=== PATIENT | female | born 1945 | race Caucasian/White ===

== ENCOUNTER 2019-08-08 21:41 | Inpatient (IN) | payer MEDICARE ==
[~2019-08-08] VITALS: Ht 162.6 cm; Wt 75.7 kg
[~2019-08-08 21:41] MED LIST: ANASPAZ0.125 MG PO; ASPIR 8181 MG PO; ASPIRIN325 PO; AUGMENTIN 875875 M1; AUGMENTIN 875875 MG PO; CIPRO250 M1 PO; DIABETA; ETODOLAC 400 M400 M1 PO; ETODOLAC PO; FLOMAX0.4 MG PO; GLIPIZIDE 10 MG10 MG PO; GLYBURIDE 5 MG T5 M1 PO; HYDROCODON-ACE1 EAC7 PO; HYDROCODONE-AP1 EAC6 PO; IBUPROFEN 600600 M1 PO; KEFLEX500 M1 PO; LEVEMIR SUBQ; LISINOPRIL10 MG PO; MACROBID 100 M100 M1 PO; MIRALAX255 GM; MOBIC7.5 MG; NEURONTIN 300300 M1; NEURONTIN 300300 M1 PO; NORCO 5-325 TA1 EAC1 PO; ONDANSETRON HCL4 M2 PO; PERCOCET 5-3251 EACH; SENNA S TABLET1 EACH PO; SIMVASTATIN20 MG PO; ZOFRAN ODT4 MG DISSOLVE; ZOLOFT PO; ZOLOFT100 MG PO
[2019-08-08 21:50] VITALS: BP 158/80
[2019-08-08 22:24] LABS: URINE BILIRUBIN NEGATIVE (Negative); URINE BLOOD 1+ (Negative); URINE COLOR YELLOW; URINE GLUCOSE-RANDOM NEGATIVE (Negative); URINE KETONES TRACE (Negative); URINE NITRITE-REFLEX NEGATIVE (Negative); URINE PROTEIN NEGATIVE (Negative); URINE SPECIFIC GRAVITY 1.025 (1.005-1.030); URINE UROBILINOGEN 0.2 E.U./dl (0.2-1.0)
[2019-08-08 22:25] LABS: URINE CLARITY SL CLOUDY; URINE LEUKOCYTES-REFLEX 2+ (Negative)
[2019-08-08 22:37] LABS: SQUAMOUS 0-3 Few /LPF (0-3); TRANSITIONAL EPITHEL CELL 0-3 Few /LPF (None Seen); URINE WBC-REFLEX >25 Many /HPF (0-5); WBC CLUMPS Moderate (None Seen)
[2019-08-08 22:38] LABS: BACTERIA-REFLEX >30 Many /HPF (None Seen); CELLULAR CASTS 0-3 Few /LPF (None Seen); CRYSTALS None Seen /LPF (None Seen); MUCUS 4-6 Moderate strn/LPF (None Seen)
[2019-08-08 22:45] LABS: ABSOLUTE EOSINOPHILS 0.2 thou/uL (0.0-0.7); ABSOLUTE LYMPHOCYTES 1.2 thou/uL (0.8-5.3); ABSOLUTE MONOCYTES 0.6 thou/uL (0.0-1.2); ABSOLUTE NEUTROPHILS 6.6 thou/uL (1.6-8.1); BASOPHILS 0.4 %; EOSINOPHILS 2.9 %; HEMOGLOBIN 13.5 gm/dL (12.0-15.0); LYMPHOCYTES 13.9 %; MCH 31.3 pg (26.0-34.0); MCHC 35.4 g/dL (28.0-37.0); MCV 88.4 fL (80.0-100.0); MONOCYTES 6.4 %; MPV 7.4 fl. (7.2-11.1); NUCLEATED RBCS 0 /100WBC; PLATELET COUNT* 141 thou/uL (150-400); POLYS 76.4 %; RBC 4.29 mil/uL (4.20-5.00); RDW-CV 12.6 % (10.5-14.5); WBC 8.6 thou/uL (4.0-11.0)
[2019-08-08 22:52] LABS: CALCIUM 8.8 mg/dL (8.5-10.1); CREATININE 2.2 mg/dL (0.6-1.3); POTASSIUM 4.4 mmol/L (3.5-5.1)
[2019-08-08 22:56] LABS: ALBUMIN 3.4 g/dL (3.4-5.0); TOTAL BILIRUBIN 0.9 mg/dL (<0.1-1.0); TOTAL PROTEIN 7.2 g/dL (6.4-8.2)
[2019-08-09 01:24] VITALS: BP 133/81
[2019-08-09 01:35] VITALS: BP 146/70
--- NOTE | 2019-08-09 04:44 | NUR ---
ADMITTED AT 0130 SHE RECEIVED 1000ML NS AND NO ORDER TO CONTINUE. CALLED DR SERRA 0430 TO ADD PAIN MEDS AND ZOFRAN TO EMAR FOR PATIENT. SHE REPORTED HER PAIN AT 3/10 UPON ARRIVAL. LAST PAIN ASSESSMENT WAS 0430 AND SHE DID NOT REPORT ANY PAIN OR NAUSEA AT THIS TIME. PLAN IS TO CONSULT UROLOGY REGARDING UTI AND RENAL STONES. WILL CONTINUE TO FOLLOW PLAN OF CARE.
--- NOTE | 2019-08-09 04:45 | NUR ---
HAS BEEN NPO SINCE MIDNIGHT FOR SCHEDULED LIVER BIOPSY PER ORDER. REQUESTED PAIN MEDS X2 PAIN IS MORE TOLERABLE THIS EVENING. HE WAS ABLE TO SLEEP MOST OF THE NIGHT. REFUSED ANY IV FLUIDS/IS TOLERATING PO FLUID WELL UNTIL MIDNIGHT. STILL UP AD MIKE AND NO REPORTS OF WORSENING PAIN OR NAUSEA. PLAN IS FOR LIVER BIOPSY TODAY AND POSSIBLE D/C FOLLOWING. WILL CONTINUE TO FOLLOW PLAN OF CARE.
[2019-08-09 07:50] VITALS: BP 124/61
[2019-08-09] MEDS ORDERED: TAMSULOSIN HCL0.4 MG PO (16:13)
[2019-08-09] MEDS ORDERED: SERTRALINE HCL50 MG PO (16:13)
[2019-08-09] MEDS ORDERED: GLIPIZIDE5 MG PO (16:14)
[2019-08-09] MEDS ORDERED: ONDANSETRON HCL4 M3 PO (16:14)
[2019-08-09 17:28] LABS: CALCIUM 8.1 mg/dL (8.5-10.1); CREATININE 1.7 mg/dL (0.6-1.3); POTASSIUM 4.9 mmol/L (3.5-5.1)
--- NOTE | 2019-08-09 17:51 | NUR ---
CM COMPLETED INITIAL ASSESSMENT TO DISCUSS D/C PLANNING. PT LIVES AT HOME W/SPOUSE. JACQUELYN WAS PRESENT DURING ASSESSMENT. PT INDEPENDENT W/ADLS, ACTIVE AND DRIVES. PT HAS NO DMES. PT USED HH "A LONG TIME AGO AFTER STROKE IN 2010.' PT DOESNT RECALL AGENCY NOR DOES SHE HAVE A PREFERENCE. PT HAS NO HX W/SNF. CM TO REMAIN AVAILABLE TO ASSIST NEEDED.
--- NOTE | 2019-08-09 18:35 | NUR ---
ASSUMED CARE OF PATIENT AT APPROX 0730. ALERT AND ORIENTED X4. ASSESSMENT COMPLETED AND CHARTED. VSS ON ROOM AIR. PAIN AND NAUSEA MANAGED WITH IV FENTANYL AND ZOFRAN. PATIENT TO PACU APPROX 1400 AND RETURNED AT 1720. PATIENT REMAINS ALERT AND ORIENTED. COMPLAINT OF HEADACHE, GIVEN NORCO. ANTIBIOTICS AND FLUIDS INFUSED ORDERED. UP WITH ASSIST TO THE BATHROOM. PATIENT INPULSIVE, FALL PRECAUTIONS IN PLACE. CALL LIGHT IN REACH. HOURLY ROUNDS COMPLETED. WILL CONTINUE WITH PLAN OF CARE.
[2019-08-09 19:50] VITALS: BP 131/70
[2019-08-10] VITALS: BP 127/63
[2019-08-10 04:00] VITALS: BP 123/59
--- NOTE | 2019-08-10 06:54 | NUR ---
ASSUMED CARE OF PT 08/09/19, PT A&OX4, PT ON ROOM AIR, PAIN MED AND ANTIEMETIC REQUESTED AND GIVEN ORDERED, VSS, ASSESSMENTS AND HOURLY ROUNDINGS COMPLETED, WILL CONTINUE TO MONITOR.
[2019-08-10 07:59] VITALS: BP 120/67
[2019-08-10 12:47] LABS: CALCIUM 7.7 mg/dL (8.5-10.1); CREATININE 1.2 mg/dL (0.6-1.3); MAGNESIUM 1.7 mg/dL (1.8-2.4)
--- NOTE | 2019-08-10 18:51 | NUR ---
PT A&Ox4. VITALS STABLE. IV PATENT, INFUSING. UP STAND BY. DENIED PAIN. DENIED N/V. FAMILY AT BEDSIDE. FALL PRECAUTIONS IN PLACE. CALL LIGHT WITHIN PLACE.
[2019-08-10 19:56] VITALS: BP 107/59
--- NOTE | 2019-08-11 03:52 | NUR ---
ASSUMED CARE OF PT 08/10/19 AT APPROX 1930, PT A&OX4, ON ROOM AIR, PT UP WITH SB ASSIST, VSS, PAIN MANAGED WITH DILAUDID AND NORCO ORDERED, WILL CONTINUE TO MONITOR.
[2019-08-11 08:50] VITALS: BP 133/69
--- NOTE | 2019-08-11 11:59 | OP ---
[address] [address] OPERATIVE REPORT Name: VERONICA WALLACEMICHELE Nobles Room: [address] [place] .R.#: [id number] Admission: 08/09/19 Attend Phys: Kike Dukes Discharge: Date of : 47 Report #: [id number] THIS REPORT FOR: //name// CC: Kim Bradley DATE OF SERVICE: 08/09/2019 INDICATION FOR PROCEDURE: The patient is a 73-year-old female who was admitted through the Emergency Department last evening due to severe left-sided flank pain. This was associated with nausea and vomiting, which has been going on for over a week. Evaluation in the Emergency Department revealed a large left proximal ureteral calculus with trnbrhai-pr-geejwe hydronephrosis, signs of UTI and renal insufficiency. Due to the above factors and her uncontrolled pain, she elects to proceed with cystoscopy, left retrograde pyelogram, and left stent placement. PREOPERATIVE DIAGNOSIS: Left ureteral calculus. POSTOPERATIVE DIAGNOSIS: Left ureteral calculus. PROCEDURE: Cystoscopy, left retrograde pyelogram, left double-J stent placement. SURGEON: Akbar Duque MD ANESTHESIA: General. COMPLICATIONS: None. ESTIMATED BLOOD LOSS: None. PROCEDURE IN DETAIL: The patient was consented for the above procedure. She was given broad spectrum IV antibiotics on a scheduled basis preoperatively. She was given general anesthetic, placed in the dorsal lithotomy position, prepped and draped in usual sterile fashion over the genitalia. Stone was poorly visualized on fluoroscopy. Cystoscopy revealed a moderate cystocele, but no evidence of stones or ulcerations or tumors were noted within the bladder itself. Ureteral orifices were easily identified. A left retrograde pyelogram was performed with a 5-Swedish Pollack catheter and dilute Omnipaque. This revealed a normal caliber ureter up to the mid ureter where a filling defect was seen. I was unable to get any contrast to go beside this filling defect. Based on that, a 0.035 floppy-tipped guidewire was passed up the ureter, passed the area of obstruction and then this ended up into the left upper quadrant. This wire was then followed with the Saint Gabriel catheter, passed the point of obstruction and a retrograde pyelogram [place], [place] [address] OPERATIVE REPORT Name: LINDSEY WALLACE Room: [address] IN [facility].#: [id number] Admission: 08/09/19 Attend Phys: Kike Dukes Discharge: Date of : 47 Report #: [id number]-[id number]-[id number] hydronephrosis down to this filling defect, which represents the stone. Based on that, the Saint Gabriel was removed leaving the guidewire in place and then a 4.8 x 26 double-J stent was passed over the wire with good curl noted in the renal pelvis and in the bladder after removing the wire. This was confirmed with fluoroscopy and cystoscopy. Very concentrated urine drained upon placing the stent with a marked amount of sediment within it. After removing the wire, the bladder was drained, scope was removed. Lidocaine gel was placed per urethra for local anesthesia and she was awakened and sent to recovery room where she remained in stable condition. We will leave the stent in place for 7-10 days, have her complete a course of antibiotic culture appropriate antibiotics, allow her renal function to improve and then she will need to come back for formal stone management in approximately 10 days. <ELECTRONICALLY SIGNED> By: Akbar Duque MD 08/11/19 1159 1611 1930Daviyvrose Duque MD /nt
[2019-08-11] MEDS ORDERED: NORCO 5-325 TA1 EAC1 PO (15:43)
[2019-08-11] MEDS ORDERED: ZOFRAN4 MG PO (15:44)
[2019-08-11] MEDS ORDERED: CEFDINIR300 MG PO (15:44)
[2019-08-11 16:35] VITALS: BP 107/59
[2019-08-11 16:36] VITALS: BP 128/62
--- NOTE | 2019-08-11 17:15 | NUR ---
PATIENT DISCHARGED TO HOME W/ PRESENT. PLEASANT AND COOPERATIVE THRU SHIFT. DISCHARGE INSTRUCTIONS REVIEWED W/ PATIENT AND . PATIENT VERBALIZES UNDERSTANDING. IV CATH SLd, CATH TIP INTACT. PATIENT BELONGINGS WITH AT TIME OF DEPARTURE. ESCORTED TO AWAITING VEHICLE PER WC W/ NURSING PRESENT. DENIES OTHER NEEDS AT THIS TIME. ~TJRN
[2019-08-11 18:09] VITALS: BP 107/59
== END 2019-08-11 17:15 | disposition home or self-care (01) | DRG 661 ==
LOC: M.ERS 21:41 → M.TBA-ER 08-09 00:54 → M.ORTHSURG 08-09 00:54
PROVIDERS: Emergency Medicine Emergency Medical Services; ADMIT Internal Medicine
PROC: BT1F1ZZ Fluoroscopy of Left Kidney, Ureter and Bladder using Low Osmolar Contrast (ICD-10-PCS; principal; 2019-08-09)
PROC: 0T778DZ Dilation of Left Ureter with Intraluminal Device, Via Natural or Artificial Opening Endoscopic (ICD-10-PCS; principal; 2019-08-09)
DX: N13.6 Pyonephrosis (principal); I10 Essential (primary) hypertension; E11.9 Type 2 diabetes mellitus without complications; E78.00 Pure hypercholesterolemia, unspecified; F41.9 Anxiety disorder, unspecified; N17.9 Acute kidney failure, unspecified; N13.9 Obstructive and reflux uropathy, unspecified; F32.9 Major depressive disorder, single episode, unspecified; Z90.49 Acquired absence of other specified parts of digestive tract; Z88.1 Allergy status to other antibiotic agents; Z72.89 Other problems related to lifestyle; Z87.442 Personal history of urinary calculi; Z79.82 Long term (current) use of aspirin; Z79.899 Other long term (current) drug therapy; Z79.84 Long term (current) use of oral hypoglycemic drugs; Z86.73 Personal history of transient ischemic attack (TIA), and cerebral infarction without residual deficits

== ENCOUNTER 2021-03-11 16:34 | Emergency (ER) | payer MEDICARE ==
[~2021-03-11] VITALS: Ht 162.6 cm; Wt 72.1 kg
[~2021-03-11 16:34] MED LIST changes: +CEFDINIR300 MG PO; +GLIPIZIDE5 MG PO; +ONDANSETRON HCL4 M3 PO; +SERTRALINE HCL50 MG PO; +TAMSULOSIN HCL0.4 MG PO; +ZOFRAN4 MG PO
[2021-03-11] MEDS ORDERED: CETIRIZINE HCL5 MG PO (16:48)
[2021-03-11] MEDS ORDERED: NORCO5 PO (18:24)
[2021-03-11] MEDS ORDERED: ZOFRAN ODT4 MG PO (18:39)
[2021-03-11 18:44] VITALS: BP 151/70
== END 2021-03-11 18:44 | disposition home or self-care (01) ==
LOC: M.ERS 16:34
DX: S06.0X0A Concussion without loss of consciousness, initial encounter (principal); E11.9 Type 2 diabetes mellitus without complications; I10 Essential (primary) hypertension; Z88.1 Allergy status to other antibiotic agents; E78.00 Pure hypercholesterolemia, unspecified; Z86.73 Personal history of transient ischemic attack (TIA), and cerebral infarction without residual deficits; Z98.51 Tubal ligation status; W01.0XXA Fall on same level from slipping, tripping and stumbling without subsequent striking against object, initial encounter; Y93.89 Activity, other specified; Y92.89 Other specified places as the place of occurrence of the external cause; Y99.8 Other external cause status

== ENCOUNTER 2021-03-29 10:16 | Emergency (ER) | payer MEDICARE ==
[~2021-03-29] VITALS: Ht 162.6 cm; Wt 72.1 kg
[~2021-03-29 10:16] MED LIST changes: +CETIRIZINE HCL5 MG PO; +NORCO5 PO; +ZOFRAN ODT4 MG PO
[2021-03-29 11:45] LABS: ABSOLUTE EOSINOPHILS 0.2 thou/uL (0.0-0.7); ABSOLUTE LYMPHOCYTES 1.2 thou/uL (0.8-5.3); ABSOLUTE MONOCYTES 0.3 thou/uL (0.0-1.2); ABSOLUTE NEUTROPHILS 4.7 thou/uL (1.6-8.1); BASOPHILS 0.6 %; EOSINOPHILS 2.9 %; HEMATOCRIT 40.9 % (37.0-47.0); HEMOGLOBIN 13.9 gm/dL (12.0-15.0); MCH 29.7 pg (26.0-34.0); MCV 87.5 fL (80.0-100.0); MONOCYTES 5.1 %; MPV 7.2 fl. (7.2-11.1); NUCLEATED RBCS 0 /100WBC; PLATELET COUNT* 164 thou/uL (150-400); POLYS 73.4 %; RBC 4.67 mil/uL (4.20-5.00); WBC 6.4 thou/uL (4.0-11.0)
[2021-03-29 12:01] LABS: CALCIUM 8.7 mg/dL (8.5-10.1); CREATININE 1.1 mg/dL (0.6-1.3); POTASSIUM 4.4 mmol/L (3.5-5.1)
--- NOTE | 2021-03-29 12:01 | EKG ---
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1945 Requested By: Lakshmi May Order Number: [id number] MD: Akbar Cortes Measurements Intervals [place] Rate: 76 P: 58 NE: 168 QRS: 37 QRSD: 81 T: 28 QT: 434 QTc: 489 Interpretive Statements Sinus rhythm Borderline prolonged QT interval Artifact in lead(s) I,II,aVR,aVL,aVF,V1,V2 Compared to ECG 02/12/2019 08:39:03 No significant changes Electronically Signed On 03-29-2021 12:01:06 CDT by Akbar Cortes [email or web address] <ELECTRONICALLY SIGNED> By: Akbar Cortes MD, [facility] 03/29/21 1201 1104 1104 Akbar Cortes MD, [facility] /EPI
[2021-03-29 12:06] LABS: ALBUMIN 3.7 g/dL (3.4-5.0); TOTAL BILIRUBIN 0.9 mg/dL (<0.1-1.0); TOTAL PROTEIN 7.1 g/dL (6.4-8.2)
[2021-03-29 13:12] LABS: URINE BILIRUBIN NEGATIVE (Negative); URINE BLOOD NEGATIVE (Negative); URINE CLARITY CLEAR; URINE COLOR YELLOW; URINE GLUCOSE-RANDOM NEGATIVE (Negative); URINE KETONES NEGATIVE (Negative); URINE LEUKOCYTES-REFLEX NEGATIVE (Negative); URINE NITRITE-REFLEX NEGATIVE (Negative); URINE PROTEIN NEGATIVE (Negative); URINE UROBILINOGEN 0.2 E.U./dl (0.2-1.0)
[2021-03-29] MEDS ORDERED: ONDANSETRON ODT4 MG PO (14:00)
[2021-03-29] MEDS ORDERED: HYDROCODON-ACE1 EAC7 PO ×2 (14:00→14:13)
[2021-03-29] MEDS ORDERED: IBUPROFEN 600600 M1 PO (14:00)
[2021-03-29 14:05] VITALS: BP 111/61
== END 2021-03-29 14:30 | disposition home or self-care (01) ==
LOC: M.ERS 10:16
PROVIDERS: Physician Assistant
DX: R07.81 Pleurodynia (principal); I10 Essential (primary) hypertension; E11.9 Type 2 diabetes mellitus without complications; E78.00 Pure hypercholesterolemia, unspecified; F41.9 Anxiety disorder, unspecified; F32.9 Major depressive disorder, single episode, unspecified; Z86.73 Personal history of transient ischemic attack (TIA), and cerebral infarction without residual deficits; Z98.51 Tubal ligation status; Z79.82 Long term (current) use of aspirin; Z79.899 Other long term (current) drug therapy; Z88.1 Allergy status to other antibiotic agents; W19.XXXA Unspecified fall, initial encounter; Y93.89 Activity, other specified; Y92.89 Other specified places as the place of occurrence of the external cause; Y99.8 Other external cause status

== ENCOUNTER → 2021-06-15 | Outpatient (CLI) | payer MEDICARE ==
[~2021-06-15] MED LIST changes: +ONDANSETRON ODT4 MG PO
[2021-06-18 10:07] LABS: ANTI-SSA <0.2 AI (0.0-0.9)
[2021-06-18 19:07] LABS: ANA INTERPRETATION Negative (()); GLOBULIN TOTAL 3.2 g/dL (2.2-3.9); M-SPIKE Not Observed g/dL (Not Observed)
== END ==
LOC: M.LAB 14:23
PROVIDERS: ATTEND Psychiatry & Neurology Neuromuscular Medicine
DX: I63.9 Cerebral infarction, unspecified (principal); G62.9 Polyneuropathy, unspecified; R27.0 Ataxia, unspecified; R25.2 Cramp and spasm; W19.XXXA Unspecified fall, initial encounter; Y93.89 Activity, other specified; Y92.89 Other specified places as the place of occurrence of the external cause; Y99.8 Other external cause status

== ENCOUNTER → 2021-06-21 | Outpatient (CLI) | payer MEDICARE ==
--- NOTE | 2021-07-16 22:53 | SLEEP ---
[address] [address] SLEEP STUDY REPORT Name: LINDSEY WALLACE Room: [facility]#: [id number] Admission: 06/21/21 Attend Phys: Glen Long MD Discharge: Date of : 47 Report #: [id number] THIS REPORT FOR: cc: Kim Vital MD, Katrina MD Pervez, Adeel MD ~ DATE OF STUDY: 06/21/2021 HOME SLEEP STUDY INTERPRETATION: Total duration of the study is 690 minutes. During this time duration, we recorded multiple sleep related respiratory events. These included 32 obstructive apneas, in addition to 36 hypopneas, 3 central apneas were also recorded. Overall, apnea-hypopnea index is 6.2. Body position data indicates the patient is lying in the supine position for at most of the sleep study. There are multiple desaturations recorded. Overall, the patient spent 146 minutes below an O2 saturation of 90%. Mean heart rate was 66. IMPRESSION: 1. Obstructive sleep apnea with an apnea-hypopnea index of 6.2. Nocturnal hypoxemia as described above. There is O2 saturations below 90% for 146 minutes. However, the lowest recorded O2 saturation of 85% and the O2 saturation does not drop below this level. RECOMMENDATIONS: Clinical correlation is advised regarding whether we should proceed with a repeat sleep study for positive airway pressure titration or use a CPAP auto titrated device first due to the presence of significant nocturnal hypoxemia. I would perhaps be inclined to favor a repeat sleep study for positive airway pressure titration in the sleep lab. In case a CPAP auto titrated device is chosen instead then I recommend obtaining a nocturnal pulse oximetry with a CPAP auto titrated device in place to verify the patient's O2 saturation is maintained with it. This entire sleep study was reviewed by board certified sleep physician. <ELECTRONICALLY SIGNED> By: Evan Verduzco MD 07/16/21 2253 [id number] Verduzco MD /nt
== END ==
LOC: M.PUL 12:52 → M.MRI 14:30
PROVIDERS: ATTEND Psychiatry & Neurology Neuromuscular Medicine
DX: G47.33 Obstructive sleep apnea (adult) (pediatric) (principal); R27.0 Ataxia, unspecified; I63.9 Cerebral infarction, unspecified; G62.9 Polyneuropathy, unspecified; R25.2 Cramp and spasm; W19.XXXA Unspecified fall, initial encounter